=== PATIENT | male | born 1955 | race Caucasian/White ===

== ENCOUNTER 2016-12-06 16:37 | Emergency (ER) | payer OTHER ==
[~2016-12-06] VITALS: Ht 170.2 cm; Wt 109.5 kg
[2016-12-06 16:43] VITALS: BP 218/119; PULSE 105; RESP 16; TEMP 98.3; O2SAT 96
[2016-12-06] MEDS ORDERED: BP med (16:55)
[2016-12-06] MEDS ORDERED: cloNIDine HCL 0.1 MG TAB PO ONE (17:00)
--- NOTE | 2016-12-06 17:05 | PD ---
HPI Chief Complaint: Injury Time Seen by Provider: 16:51 Travel History International Travel<30 days: No Contact w/Intl Traveler<30days: No Traveled to known affect area: No History of Present Illness HPI while walking slipped on some mulch and landed on his left shoulder. states that pain is worse when he reaches 90 degrees with shoulder, at rest is improved , elbow/wrist is ok without pain on rom. pt states no other part of his body is sore and is otherwise doing well. no loc, witnessed by who is at bedside corroborating story. chart adn rn notes reviewed all:nkda pmhx:htn only PFSH Past Medical History Cardiovascular Problems: Yes (htn on meds) Social History Alcohol Use: Yes Tobacco Use: No Allergies-Medications (Allergen,Severity, Reaction): Coded Allergies: No Known Allergies (Verified Allergy, Unknown, 12/06/16) Reported Meds & Prescriptions Reported Meds & Active Scripts Active Reported [BP med] Review of Systems Except as stated in HPI: all other systems reviewed are Neg General / Constitutional: No: Fever Eyes: No: Visual changes HENT: No: Headaches Cardiovascular: No: Chest Pain or Discomfort Respiratory: No: Shortness of Breath Gastrointestinal: No: Abdominal Pain Genitourinary: No: Dysuria Musculoskeletal: Positive: Pain Skin: No Rash Neurologic: No: Weakness Psychiatric: No: Depression Endocrine: No: Polydipsia Hematologic/Lymphatic: No: Easy Bruising Physical Exam Narrative GENERAL: SKIN: Warm and dry. HEAD: Atraumatic. Normocephalic. EYES: Pupils equal and round. No scleral icterus. No injection or drainage. ENT: No nasal bleeding or discharge. Mucous membranes pink and moist. NECK: Trachea midline. No JVD. CARDIOVASCULAR: Regular rate and rhythm. RESPIRATORY: No accessory muscle use. Clear to auscultation. Breath sounds equal bilaterally. GASTROINTESTINAL: Abdomen soft, non-tender, nondistended. Hepatic and splenic margins not palpable. MUSCULOSKELETAL: Extremities without clubbing, cyanosis, or edema. No obvious deformities. small area of abrasion at lateral deltoid region, no ttp along clavicle however some grimacing noted when palpating ac joint area. no ttp along scapula nor lateral glenoid/humerus region. 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 No obvious cranial nerve deficits. Motor grossly within normal limits. Five out of 5 muscle strength in the arms and legs. Normal speech. PSYCHIATRIC: Appropriate mood and affect; insight and judgment normal. Data Data Last Documented VS Vital Signs Date Time Temp Pulse Resp B/P (MAP) Pulse Ox O2 Delivery O2 Flow Rate FiO2 12/06/16 17:39 186/116 (139) 12/06/16 16:43 98.3 105 16 96 Orders Orders Shoulder, Complete (>2vws) (12/06/16 ) Clonidine (Catapres) (12/06/16 17:00) MDM Medical Decision Making Medical Screen Exam Complete: Yes Emergency Medical Condition: Yes Medical Record Reviewed: Yes Differential Diagnosis fx v dislocation v abrasion v contusion v ac joint sprain Narrative Course patients rom mostly intact except when reaching above gets sharp pain, xrays do not show any fx or dislocation at this point. patient declined pain medication but accepted htn med, which has helped pt bp tremendously (per patient he has not taken htn med since yesterday) Diagnosis Primary Impression: Strain of AC joint Qualified Codes: S46.912A - Strain of unspecified muscle, fascia and tendon at shoulder and upper arm level, left arm, initial encounter Additional Impression: hypertension Patient Instructions: General Instructions, Shoulder Sprain (GEN) Scripts Baclofen (Baclofen) 10 Mg Tab 10 MG PO TID for 5 Days, #15 TAB 0 Refills Prov: Malachi Padilla MD 12/06/[address] (Naproxen EC) 375 Mg Tabdr 375 MG PO BID, #60 TAB 0 Refills Prov: Malachi Padilla MD 12/06/16 Disposition: 01 DISCHARGE HOME Condition: Stable Malachi Padilla MD Dec 06, 2016 17:05
--- NOTE | 2016-12-06 17:20 | RADRPT ---
EXAM DATE/TIME: 12/06/2016 17:01 [facility] COMPARISON: No previous studies available for comparison. INDICATIONS : Fell today on left shoulder, has pain, limited ROM MEDICAL HISTORY : None. SURGICAL HISTORY : None. ENCOUNTER: Initial ACUITY: 1 day PAIN SCORE: 8/10 LOCATION: Left Shoulder FINDINGS: Multiple view examination of the left shoulder demonstrates no evidence of fracture or dislocation. The glenohumeral and acromioclavicular joints are maintained. There is normal range of motion betwee n internal and external rotation. The visualized left upper ribs are intact. Bony mineralization is normal. CONCLUSION: No evidence of fracture or dislocation. Onesimo Barksdale MD on December 06, 2016 at 17:18 Board Certified Radiologist. This report was verified electronically.
[2016-12-06 17:39] VITALS: BP 186/116
[2016-12-06] MEDS ORDERED: NAPR-239 PO (17:47)
[2016-12-06] MEDS ORDERED: BACL10TA PO (17:47)
== END 2016-12-06 17:59 | disposition home or self-care (01) ==
LOC: PHED 16:37
DX: S46.912A Strain of unspecified muscle, fascia and tendon at shoulder and upper arm level, left arm, initial encounter (principal); I10 Essential (primary) hypertension; W01.0XXA Fall on same level from slipping, tripping and stumbling without subsequent striking against object, initial encounter
CPT/HCPCS: 73030; 99283